=== PATIENT | male | born 1995 | race Caucasian/White ===

== ENCOUNTER 2024-05-17 10:48 | Inpatient (IN) | payer MEDICAID, OTHER ==
[~2024-05-17] VITALS: Ht 170.2 cm; Wt 84.8 kg
[2024-05-17] MEDS ORDERED: HALOPERIDOL 5 MG TABLET PO PRN (12:45)
[2024-05-17 12:48] LABS: COVID AG,FIA SOURCE NASAL SWAB
[2024-05-17] MEDS: HALOPERIDOL LACTATE 5 MG/ML VIAL IM ONE (12:51)
[2024-05-17] MEDS: LORazepam 2 MG/ML VIAL IM ONE (12:51)
[2024-05-17] MEDS: DiphenhydrAMINE HCL 50 MG/ML VIAL IM ONE (12:51)
[2024-05-17 12:52] LABS: APPEARANCE,URINE CLEAR (CLEAR); BILIRUBIN,URINE NEGATIVE (NEGATIVE); COLOR,URINE LIGHT YELLOW (YELLOW); GLUCOSE, URINE (UA) NEGATIVE (NEGATIVE); KETONES,URINE NEGATIVE (NEGATIVE); LEUKOCYTE ESTERASE ,URINE NEGATIVE (NEGATIVE); NITRATE,URINE NEGATIVE (NEGATIVE); OCCULT BLOOD,URINE NEGATIVE (NEGATIVE); PROTEIN,URINE TRACE mg/dL (NEGATIVE); SPECIFIC GRAVITIY, URINE 1.023 (1.003-1.030)
[2024-05-17 12:58] LABS: BASOPHILS % (AUTO) 0.2 % (0.0-2.0); EOSINOPHILS % (AUTO) 0.6 % (1.0-6.0); HEMATOCRIT 47.3 % (41-53); HEMOGLOBIN 15.9 g/dL (13.5-17.5); LYMPHOCYTES # (AUTO) 0.6 K/uL (1.0-4.8); MEAN CORPUSCULAR HEMOGLOBIN 28.7 pg (26.0-34.0); MEAN CORPUSCULAR HGB CONC 33.7 G/dL (31.0-37.0); MEAN CORPUSCULAR VOLUME 85 fL (80-100); MONOCYTES # (AUTO) 0.8 K/uL (0.1-1.0); MONOCYTES % (AUTO) 8.6 % (2.0-9.0); NEUTROPHILS # (AUTO) 8.1 K/uL (1.8-7.7); NEUTROPHILS % (AUTO) 84.6 % (40.0-70.0); PLATELET COUNT (AUTO) 304 K/uL (150-450); RED BLOOD CELL COUNT(AUTO) 5.55 MIL/uL (4.50-5.90); RED CELL DISTRIBUTION WIDTH 13.8 % (11.5-14.5); WHITE BLOOD COUNT (AUTO) 9.6 K/uL (4.5-11.0)
[2024-05-17 13:00] LABS: AMPHET/METH SCREEN,URINE NEGATIVE (NEGATIVE); BARBITURATE SCREEN, URINE NEGATIVE (NEGATIVE); BENZODIAZEPINES SCREEN,URINE NEGATIVE (NEGATIVE); CANNABINOID SCREEN,URINE NEGATIVE (NEGATIVE); COCAINE SCREEN,URINE NEGATIVE (NEGATIVE); METHADONE SCREEN, URINE NEGATIVE (NEGATIVE); OPIATE SCREEN,URINE NEGATIVE (NEGATIVE); PHENCYCLIDINE SCREEN,URINE NEGATIVE (NEGATIVE)
[2024-05-17 13:01] LABS: ALCOHOL, URINE DRUG SCREEN NEGATIVE (NEGATIVE)
[2024-05-17 13:06] LABS: ANION GAP 5 mmol/L (8-16); CALCIUM, TOTAL 8.5 mg/dL (8.8-10.5); CARBON DIOXIDE 32 mmol/L (22-29); CHLORIDE 100 mmol/L (98-107); CREATININE 1.31 mg/dL (0.60-1.30); GLOMERULAR FILTR. RATE CALC > 60 mL/min (>60); GLUCOSE,RANDOM 126 mg/dL (70-110); POTASSIUM 3.6 mmol/L (3.5-5.1); SODIUM SERUM 137 mmol/L (136-145); UREA NITROGEN, BLOOD 8 mg/dL (7-18)
[2024-05-17 13:08] LABS: ALCOHOL, BLOOD (SERUM) < 3 mg/dL (0-10)
[2024-05-17 13:19] LABS: SARS-COV2 (COVID) ANTIGEN,FIA Negative (Negative)
[2024-05-17 17:23] VITALS: O2SAT 98
[2024-05-17 20:55] VITALS: BP 144/74; PULSE 114; RESP 17; TEMP 98; O2SAT 100
[2024-05-18 00:40] VITALS: BP 110/74; PULSE 115; RESP 18; TEMP 98.3; O2SAT 99
[2024-05-18] MEDS ORDERED: INFLUENZA VIRUS VACCINE TVS (6MO+) 2024-25/PF 45 MCG/0.5 ML SYRINGE IM. ONE (04:30)
[2024-05-18 09:00] VITALS: BP 126/71; PULSE 103; RESP 17; TEMP 98.2; O2SAT 98
[2024-05-18] MEDS ORDERED: DOCUSATE SODIUM 100 MG CAPSULE PO PRN (20:30)
[2024-05-18] MEDS ORDERED: CloNIDine HCL 0.1 MG TABLET PO PRN (20:30)
[2024-05-18] MEDS ORDERED: PETROLATUM,WHITE 28 GM JELLY TP PRN (20:30)
[2024-05-18] MEDS ORDERED: MAGNESIUM HYDROXIDE SUSPENSION 30 ML UDCUP PO PRN (20:30)
[2024-05-18] MEDS ORDERED: OMEPRAZOLE 20 MG CAPSULE PO PRN (20:30)
[2024-05-18] MEDS ORDERED: ONDANSETRON 4 MG TABLET PO PRN (20:30)
[2024-05-18] MEDS ORDERED: ACETAMINOPHEN 325 MG TABLET PO PRN (20:30)
[2024-05-18] MEDS ORDERED: BACITRACIN 28 GM OINTMENT TP PRN (20:30)
[2024-05-18] MEDS ORDERED: MAG HYDROX/ALUMINUM HYD/SIMETH ES 30 ML SUSPENSION UDCUP PO PRN (20:30)
[2024-05-18] MEDS ORDERED: BENZOCAINE/MENTHOL LOZENGE PO PRN (20:30)
[2024-05-18] MEDS ORDERED: ALBUTEROL SULFATE HFA 90 MCG/PUFF 8 GM INHALER IH PRN (20:30)
[2024-05-18] MEDS ORDERED: IBUPROFEN 600 MG TABLET PO PRN (20:30)
[2024-05-18] MEDS ORDERED: LOPERAMIDE HCL 2 MG CAPSULE PO PRN (20:30)
[2024-05-18 22:22] VITALS: BP 129/82; PULSE 107; RESP 17; TEMP 98.4; O2SAT 99
[2024-05-18] MEDS: ZOLPIDEM TARTRATE 10 MG TABLET PO PRN (22:47)
[2024-05-19 10:53] VITALS: RESP 17
[2024-05-19] MEDS: RisperiDONE 2 MG TABLET PO SCH (16:34)
[2024-05-19] MEDS: LORazepam 2 MG TABLET PO PRN (20:25)
[2024-05-19 22:49] VITALS: BP 103/56; PULSE 103; RESP 18; TEMP 97.7; O2SAT 97
[2024-05-20 10:06] VITALS: BP 123/62; PULSE 90; RESP 19; TEMP 97.1; O2SAT 99
[2024-05-20 21:33] VITALS: BP 102/61; PULSE 107; RESP 18; TEMP 97.9; O2SAT 98
[2024-05-21 12:28] VITALS: BP 117/71; PULSE 82; RESP 18; TEMP 97.9; O2SAT 95
[2024-05-21 21:07] VITALS: BP 92/61; PULSE 91; RESP 18; TEMP 97.4; O2SAT 96
[2024-05-22 08:30] VITALS: BP 119/79; PULSE 84; RESP 18; TEMP 97.3; O2SAT 96
[2024-05-22 20:00] VITALS: BP 123/77; PULSE 81; RESP 18; TEMP 97.5; O2SAT 100
[2024-05-23 10:06] VITALS: BP 149/81; PULSE 80; RESP 18; TEMP 96.6; O2SAT 98
[2024-05-23 20:48] VITALS: BP 96/66; PULSE 98; RESP 19; TEMP 97.8; O2SAT 98
[2024-05-24 08:58] VITALS: BP 99/48; PULSE 60; RESP 16; TEMP 97.9; O2SAT 98
[2024-05-24 22:35] VITALS: RESP 18
[2024-05-25 09:41] VITALS: BP 112/75; PULSE 57; RESP 18; TEMP 97.6; O2SAT 97
[2024-05-25] MEDS: PALIPERIDONE PALMITATE 234 MG/1.5 ML SYRINGE IM SCH (16:46)
[2024-05-25 20:26] VITALS: BP 151/74; PULSE 98; RESP 18; TEMP 97.3; O2SAT 99
[2024-05-26 10:33] VITALS: BP 104/48; PULSE 63; RESP 18; TEMP 97.4; O2SAT 100
[2024-05-26] MEDS ORDERED: PALI234D IM (12:35)
== END 2024-05-26 16:28 | disposition home or self-care (01) | DRG 750 ==
LOC: EMS 10:48 → 3EI 20:55
PROVIDERS: ADMIT Psychiatry & Neurology Psychiatry; ATTEND Psychiatry & Neurology Psychiatry
PROC: GZ52ZZZ Individual Psychotherapy, Cognitive (ICD-10-PCS; principal; 2024-05-17)
DX: F25.9 Schizoaffective disorder, unspecified (principal); F32.A Depression, unspecified; F41.9 Anxiety disorder, unspecified; Z20.822 Contact with and (suspected) exposure to COVID-19; K21.9 Gastro-esophageal reflux disease without esophagitis; K59.00 Constipation, unspecified; R00.0 Tachycardia, unspecified; G47.00 Insomnia, unspecified; Z87.820 Personal history of traumatic brain injury
CPT/HCPCS: 80048; 80307; 81003; 85025; 99285; G0480; J1200; J1630; J2060